=== PATIENT | female | born 1950 | race Two or more races ===

== ENCOUNTER 2022-02-24 14:23 | Outpatient (CLI) | payer OTHER | END 2022-02-24 14:27 | disposition home or self-care (01) | LOC: SONOGRAMA 14:23 | PROVIDERS: ATTEND Pathology Anatomic Pathology & Clinical Pathology | DX: E04.2 Nontoxic multinodular goiter (principal) ==

== ENCOUNTER 2025-01-02 08:32 | Outpatient (CLI) | payer OTHER | END 2025-01-02 08:35 | disposition home or self-care (01) | LOC: SONOGRAMA 08:32 | PROVIDERS: ATTEND Pathology Anatomic Pathology | DX: D34 Benign neoplasm of thyroid gland (principal); E07.89 Other specified disorders of thyroid; E04.2 Nontoxic multinodular goiter ==